=== PATIENT | male | born 1980 | race Caucasian/White ===

== ENCOUNTER 2017-08-23 16:14 | Emergency (ER) | payer BC ==
[2017-08-23] MEDS ORDERED: CEPHALEXIN500 M1 PO (17:19)
[2017-08-23 17:40] VITALS: BP 139/88
== END 2017-08-23 17:40 | disposition home or self-care (01) ==
LOC: ED 16:14
DX: S61.212A Laceration without foreign body of right middle finger without damage to nail, initial encounter (principal); S61.214A Laceration without foreign body of right ring finger without damage to nail, initial encounter; W25.XXXA Contact with sharp glass, initial encounter; Y92.008 Other place in unspecified non-institutional (private) residence as the place of occurrence of the external cause; Z23 Encounter for immunization
CPT/HCPCS: 90715

== ENCOUNTER 2017-09-02 12:30 | Emergency (ER) | payer BC ==
[~2017-09-02 12:30] MED LIST: CEPHALEXIN500 M1 PO
[2017-09-02 12:45] VITALS: BP 156/97
== END 2017-09-02 12:46 | disposition home or self-care (01) ==
LOC: ED 12:30
DX: Z48.02 Encounter for removal of sutures (principal)